=== PATIENT | female | born 1995 | race Caucasian/White ===

== ENCOUNTER 2025-01-07 10:41 | Observation (INO) ==
--- NOTE | 2025-01-07 11:12 | Emergency Department Note ---
Impression & Plan Pre-eclampsia, Edema ED Provider Note NAME: FRANSISCO ANDUJAR AGE: 29 SEX: F : 1995 ARRIVES VIA: Walk-In INFORMANT: Patient, ED PROVIDER(S): Real Pugh DO CHIEF COMPLAINT: Elevated blood pressure HPI: The patient is a 29-year-old female who is 7 days from a section. The patient had to be induced because of -induced hypertension and preeclampsia. The patient was started on Lasix. She is been compliant with her outpatient medication. She started noticing more swelling over the last 24 hours also noticed that she had a slight frontal headache as well as elevated blood pressure. She denies having any neck stiffness. She denies having any trauma or fever. The patient presented to the emergency department for further evaluation. She did deliver at [facility] because of her complicated . She is followed by the [facility] group locally. ROS: See above HPI for pertinent positives & negatives. A total of 10 systems reviewed and were otherwise negative. PAST MEDICAL HISTORY: See Below PAST SURGICAL HISTORY: See Below FAMILY HISTORY: See Below SOCIAL HISTORY: See Below HOME MEDICATIONS: See Below ALLERGIES: See Below VITALS: See Below PHYSICAL EXAMINATION: GENERAL: Patient is awake alert in no acute distress patient is resting comfortably and showing no signs of anxiety EYES: The conjunctivae are clear. The pupils are round and reactive. EARS, NOSE, MOUTH AND THROAT: The nose is without any evidence of any deformity. Mucous membranes are moist. Tongue is midline. NECK: The neck is nontender and supple. RESPIRATORY: Normal respiratory effort is noted there is no evidence of wheezing rhonchi or rales CARDIOVASCULAR: Regular rate and rhythm noted there no murmurs rubs or gallops normal S1 normal S2. GASTROINTESTINAL: The abdomen is soft. Abdomen is nontender. MUSCULOSKELETAL/EXTREMITIES: There is no evidence of gross deformity full range of motion is noted in the hips and shoulders. SKIN: Skin is warm and dry. Pedal edema was noted bilaterally. NEUROLOGIC: Patient is awake alert and oriented x3 strength is symmetric patellar reflexes are 2+ bilaterally MEDICAL DECISION MAKING: The patient is a 29-year-old female who is 1 week status post section because of preeclampsia for third trimester . The patient did have a headache. She had pedal edema bilaterally. She was on Lasix after her delivery until yesterday. I discussed the patient's laboratory and radiographic studies with her. She was observed in the emergency department. Pressure did improve but started to elevate again. I discussed her condition with the [facility] [employer] physician. At this time they are recommending admission for ongoing blood pressure control especially given the patient's history of preeclampsia. She is currently taking blood thinners as she has a history of antiphospholipid syndrome. The patient was agreeable to plan. Triage Nursing notes reviewed. Prior medical records reviewed Vital Signs: reviewed and remarkable for elevated blood pressure. Differential diagnosis: Benign hypertension, hypertensive emergency, cardiovascular pathology, toxicologic, pheochromocytoma, electrolyte abnormality, renal disease, endorgan damage, as well as other pathologies. ER treatment provided: See below Diagnostics interpreted by me: ECG: EKG was obtained in the emergency department. My interpretation is normal sinus rhythm at 67 bpm. There is no ectopy. There is no acute ST segment abnormalities noted. QTc was 420 ms. Cardiac Monitoring: An order was placed for continuous cardiac monitoring. The monitor shows a rate of 60 bpm with sinus rhythm. Laboratory studies: As stated above and show below. Imaging studies: See below. Radiographic imaging was reviewed by myself Consultation(s): I discussed this case with Dr. Arnold who is on-call for Luis Kate [employer]. Past Med/Surg History Problem List (Updated 01/07/25 @ 15:10 by Real Pugh DO) Edema (Acute) Pre-eclampsia (Acute) Decreased movement 26 weeks gestation of Chiari I malformation Antiphospholipid syndrome Rh negative status during Hypothyroidism affecting Encounter for supervision of normal intrauterine in multigravida, antepartum Early stage of Encounter for anatomic survey Medical History DVT (deep venous thrombosis) left leg Pulmonary embolism bilateral Varicella vaccination Anxiety Hypothyroidism, postablative Hx of papillary thyroid carcinoma Surgical History H/O ureter repair History of thyroidectomy History of embolectomy History of tonsillectomy History of thyroidectomy, total Family History Grandmother (Maternal) Lung cancer Factor V Leiden Father Hypertension Grandfather (Paternal) Hypertension Grandmother (Maternal) Breast cancer Great-grandmother Denies family history of Ovarian cancer Colorectal cancer Social History Smoking Status: Never smoker Do You Dip or Chew Tobacco: No; Hx Alcohol Use: Yes Hx Substance Use: No marital status: marital status details: Ernesto Andujar (33) [phone] Current Living Situation: Spouse Current Living Situation Comment: Lives with spouse and 1 dog current occupational status: employed current occupation: Occupational Therapist Feels Safe at Home: Yes Allergies Allergies Allergy/AdvReac Type Severity Reaction Status Date / Time gluten Allergy Intermediate Gastrointestinal Verified 10/14/24 20:14 Upset Sulfa (Sulfonamide Allergy Rash Verified 10/14/24 20:14 Antibiotics) Home Meds Home Medications Medication Instructions Recorded Confirmed magnesium gluconate 30 mg (550 mg) 30 mg PO DAILY 11/30/22 01/07/25 tablet enoxaparin 40 mg/0.4 mL 40 mg subcut DAILY 06/06/24 01/07/25 subcutaneous syringe (Lovenox) prenat.vits,janae,inb-ayeb-dwmnn 1 tab PO DAILY 06/06/24 01/07/25 famotidine 40 mg tablet (Pepcid) 40 mg PO DAILY 01/07/25 01/07/25 Previous Rx's Medication Instructions Recorded levothyroxine 150 mcg tablet 150 mcg PO DAILY #30 tabs 10/20/24 Results & Data (ED) Vital Signs Vital Signs - 24 hr 01/07/25 10:47 01/07/25 11:35 Temperature 36.4 C L Temperature Source Temporal Artery Scan Pulse Rate 70 Pulse Rate [Apical] 73 Pulse Rhythm Regular Pulse Strength Normal Respiratory Rate 20 16 Respiratory Effort / Characteristics Non-Labored Spontaneous Non-Labored Spontaneous Respiratory Depth Normal Normal Respiratory Pattern Regular Blood Pressure 149/96 H Blood Pressure [Left Arm] 138/89 Blood Pressure Mean 113 Blood Pressure Mean [Left Arm] 105 Blood Pressure Position Sitting Pulse Oximetry 98 98 Oxygen Delivery Method Room Air Room Air Sepsis Recent Fever Within 48 Hours No Sepsis New/Unexplained Change in Mental Status N/A Sepsis Action Taken by Nursing No Action Required Home Medications Current Medication List: was personally reviewed by me Laboratory Data Attestation: I reviewed the patient's lab results. 01/07/25 11:16 01/07/25 11:16 Lab Results 01/07/25 01/07/25 Range/Units 11:16 12:43 WBC 9.32 (4.8-10.8) K/ul RBC 3.84 L (4.20-5.40) M/uL Hgb 11.3 L (12.0-16.0) g/dl Hct 33.1 L (37.0-47.0) % MCV 86.2 (80.0-100.0) fL MCH 29.4 (25.0-34.0) pg MCHC 34.1 (32.0-36.0) g/dL RDW Std Deviation 41.3 (36.4-46.3) fL RDW Coeff of Margaret 13.2 (11.5-14.5) % Plt Count 346 (130-400) K/uL MPV 9.0 L (9.4-12.4) fL Immature Gran % (Auto) 0.8 % Neut % (Auto) 75.0 % Lymph % (Auto) 18.0 % [place] % (Auto) 4.9 % Eos % (Auto) 1.0 % Baso % (Auto) 0.3 % Neut # (Auto) 6.99 H (1.40-6.50) K/uL Lymph # (Auto) 1.68 (1.20-3.40) K/uL [place] # (Auto) 0.46 (0.11-0.59) K/uL Eos # (Auto) 0.09 (0.00-0.50) K/uL Baso # (Auto) 0.03 (0.00-0.20) K/uL Immature Gran # (Auto) 0.07 (0.01-0.20) K/uL PT 9.8 (9.0-12.0) Seconds INR 0.9 (0.9-1.1) APTT 27 (21-31) Seconds PTT Ratio 1.0 Sodium 131 L (136-145) mmol/L Potassium 4.2 (3.5-5.1) mmol/L Chloride 100 (98-107) mmol/L Carbon Dioxide 25 (21-32) mmol/L Anion Gap 6 (3-11) BUN 7 (6-23) mg/dl Creatinine 0.68 (0.6-1.2) mg/dl Est Cr Clr Drug Dosing 151.9 ml/min eGFR 120.83 BUN/Creatinine Ratio 10.3 (10-20) Glucose 94 (70-99(Fasting)) mg/dl Calcium 7.8 L (8.6-10.3) mg/dl Magnesium 2.0 (1.7-2.4) mg/dl Total Bilirubin 0.3 (0.2-1.0) mg/dl AST 30 (13-39) U/L ALT 45 (7-52) U/L Alkaline Phosphatase 81 (34-104) U/L Troponin I High Sens 10.3 (0-14) pg/ml Total Protein 6.3 (6.0-8.3) gm/dl Albumin 3.0 L (3.4-5.0) gm/dl Globulin 3.3 (2.5-4.0) gm/dl Albumin/Globulin Ratio 0.9 (0.9-2) Urine Color Yellow Urine Appearance Clear (Clear) Urine pH 7.0 (4.5-7.5) Ur Specific [place] 1.008 (1.000-1.030) Urine Protein Negative (Negative) Urine Glucose (UA) Negative (Negative) Urine Ketones Negative (Negative) Urine Blood 1+ H (Negative) Urine Nitrite Negative (Negative) Urine Bilirubin Negative (Negative) Urine Urobilinogen Negative (Negative) Ur Leukocyte Esterase 1+ H (Negative) Urine WBC (Auto) 11-20 H (0-5) /hpf Urine RBC (Auto) 0-2 (0-2) /hpf U Hyaline Cast (Auto) 0-2 (0-2) /lpf U Epithel Cells (Auto) 3-5 H (0-2) /hpf Urine Bacteria (Auto) None Seen (None Seen) Urine Comment Administered Medications Discontinued Medications Magnesium Sulfate/Dextrose (Magnesium Sulfate / D5w) 1 gm in 100 mls @ 100 mls/hr IV NOW STA Stop: 01/07/25 12:03 Last Infusion: 01/07/25 12:44 Dose: Infused Documented By: Admin: 01/07/25 11:28 Dose: 100 mls/hr Documented By: PRERNA Acetaminophen (Ofirmev) 1,000 mg in 100 mls @ 400 mls/hr IV NOW STA Stop: 01/07/25 11:18 Last Infusion: 01/07/25 11:38 Dose: Infused Documented By: Admin: 01/07/25 11:14 Dose: 400 mls/hr Documented By: PRERNA Labetalol HCl (Labetalol Hcl Iv 5 Mg/Ml 20ml) 10 mg IV NOW STA Stop: 01/07/25 11:05 Last Admin: 01/07/25 13:22 Dose: Not Given Documented By: ELOINA Imaging Data Attestation: I personally reviewed and interpreted this imaging study as follows: My Impression: 1 view chest x-ray was obtained in the emergency department. My interpretation is no free air or definite infiltrate, final report below. Radiologist's Impression: Chest X-Ray 01/07/25 10:59 XR chest 1V portable CLINICAL HISTORY: Hypertension COMPARISON STUDY: None FINDINGS: There is stable cardiomegaly without pulmonary vascular congestion. Inspiration is shallow. No consolidation or pleural effusion seen. No pneumothorax. IMPRESSION: No acute findings. ACT 112: Negative or not required by law. Electronically signed by: Koby Ying M.D. 01/07/2025 11:49 AM Discharge Plan Visit Data Chief Complaint: Hypertension Stated Complaint: POST HYPERTENSION ED Provider: Real Pugh Discharge Problem: Pre-eclampsia, Edema Patient Disposition: Admitted As Inpatient Condition: Fair Discharge Instructions Interventions: ED Discharge Assessment Last Done: 01/07/25 14:13
[2025-01-07] MEDS: ACETAMINOPHEN 1,000 MG/100 ML VIAL IV STA (11:14)
[2025-01-07] MEDS: MAGNESIUM SULFATE / D5W 1 GM/100 ML BAG IV STA (11:28)
[2025-01-07 11:47] LABS: Hematocrit (blood only) 33.1 % (37.0-47.0); Hemoglobin 11.3 g/dl (12.0-16.0); Immature Granulocytes # (auto) 0.07 K/uL (0.01-0.20); Immature Granulocytes % (auto) 0.8 %; Mean Corpuscular Hemoglobin 29.4 pg (25.0-34.0); Mean Corpuscular Volume 86.2 fL (80.0-100.0); Platelet Count 346 K/uL (130-400); RDW Standard Deviation 41.3 fL (36.4-46.3); Red Blood Count 3.84 M/uL (4.20-5.40); White Blood Count 9.32 K/ul (4.8-10.8)
--- NOTE | 2025-01-07 11:50 | XRay Report ---
XR chest 1V portable CLINICAL HISTORY: Hypertension COMPARISON STUDY: None FINDINGS: There is stable cardiomegaly without pulmonary vascular congestion. Inspiration is shallow. No consolidation or pleural effusion seen. No pneumothorax. IMPRESSION: No acute findings. ACT 112: Negative or not required by law. Electronically signed by: Koby Ying M.D. 01/07/2025 11:49 AM
[2025-01-07 12:01] LABS: Alanine Aminotransferase 45.0 U/L (7-52); Albumin Globulin Ratio 0.9 (0.9-2); Albumin Level 3.0 gm/dl (3.4-5.0); Alkaline Phosphatase 81.0 U/L (34-104); Anion Gap 6.0 (3-11); Bilirubin,Total 0.3 mg/dl (0.2-1.0); Blood Urea Nitrogen 7.0 mg/dl (6-23); Calcium 7.8 mg/dl (8.6-10.3); Carbon Dioxide 25.0 mmol/L (21-32); Chloride 100.0 mmol/L (98-107); Creatinine Clr Calc Pharmacy 151.9 ml/min; Globulin 3.3 gm/dl (2.5-4.0); Glucose 94.0 mg/dl (70-99(Fasting)); Magnesium 2.0 mg/dl (1.7-2.4); Potassium 4.2 mmol/L (3.5-5.1); Sodium 131.0 mmol/L (136-145); Total Protein 6.3 gm/dl (6.0-8.3)
[2025-01-07 12:10] LABS: INR 0.9 (0.9-1.1); Partial Thromboplastin Time 27 Seconds (21-31); Prothrombin Time 9.8 Seconds (9.0-12.0)
[2025-01-07 13:11] LABS: Appearance Urine Clear (Clear); Bacteria Urine Automated None Seen (None Seen); Cast Urine Automated 0-2 /lpf (0-2); Glucose Urine UA Negative (Negative); RBC Urine Automated 0-2 /hpf (0-2)
[2025-01-07] MEDS: LABETALOL HCL IV 5 MG/ML 20ML IV STA (13:22)
--- NOTE | 2025-01-07 15:08 | History & Physical Report ---
Date of Service January 07, 2025 Assessment & Plan (1) Pre-eclampsia: Plan: day 7 from CSec, severe preeclampsia at time of delivery. Returns to hospital with resurgence of preeclampsia, not on antihypertensives. Discussed starting labetalol PO and repeating 24hr mag to cover for the acute timeframe, given severe BP at home and here on arrival. Hope is to get her home after 24hr with stable controlled BP on labetalol. While here, continue thyroid meds, continue lovenox prophy + SCD's for history of antiphospholipid with PEs. CXR reassuring and no s/sx DVT on clinical exam, but she will be on pulse ox during mag therapy, and if SOB or desats would have low threshold to get spiral CT given her history. Admission and Anticipated Discharge Date Admission Date: January 07, 2025 History of Present Illness Chief Complaint: pPx Preeclampsia Primary Care Provider: Sadie Palm MD 29yo who is POD#7 from a primary section. Patient conceived using Nominum and received initial PNC with our group. S he works in [place], lives in [facility], and is nearest to [facility] for a tertiary center for the greatest number of hours in her daily life, so she elected to get MFM care at [facility] during this . In the third trimester she transferred to them. She is on lovenox for APS with h/o PEs, levothyroxine 150mcg PO QAM, and has a low-grade Chiari Malformation. Due to the Chiari, her neurologist recc'd CSec to avoid both pushing and/or an epidural. Although anesthesia at [facility] discussed with her this was probably overcautious, she did prefer to proceed that way and was comfortable with having a CSec and spinal. That was her delivery plan, to be done at [facility] at term. She was diagnosed with gHTN but it was mild and she'd been feeling fine. Then on 12/31 the patient began to have sudden worsening of edema and BP, and presented urgently to [facility] where she was diagnosed with severe preE, stabilized wtih IV labetalol and Mag 4g load, then transferred to [facility]. She then had primary LTCS, finished a 24hr mag course, and was discharged home on 01/03. She went home without any antihypertensive but was instructed to take lasix 20mg PO BID until 01/06, and to continue prophy dose lovenox. At home today, the patient had feelings of shortness of breath, fatigue/malaise, and noted bp elevated in the severe range when taken manually by her [employer] . She was brought to [facility] where BP was 149/96, with reported additional BP 156/101. Patient was given 1g IV magnesium in ER, and also had CXR due to SOB which was negative (no pulm edema/vascular congestion/PNA). She was transferred up to L&D for further care, where I met with her in 426. At this time she denies BOYER, RUQ pain, vision change. Edema is "mild compared to what it's been," and is ~1+ nonpitting at this time. Allergies Allergy/AdvReac Type Severity Reaction Status Date / Time gluten Allergy Intermediate Gastrointestinal Verified 10/14/24 20:14 Upset Sulfa (Sulfonamide Allergy Rash Verified 10/14/24 20:14 Antibiotics) Home Medications Medication Instructions Recorded Confirmed Type magnesium gluconate 30 mg (550 mg) 30 mg PO DAILY 11/30/22 01/07/25 History tablet enoxaparin 40 mg/0.4 mL 40 mg subcut DAILY 06/06/24 01/07/25 History subcutaneous syringe (Lovenox) prenat.vits,janae,dmy-cams-zphnj 1 tab PO DAILY 06/06/24 01/07/25 History levothyroxine 150 mcg tablet 150 mcg PO DAILY #30 tabs 10/20/24 01/07/25 Rx famotidine 40 mg tablet (Pepcid) 40 mg PO DAILY 01/07/25 01/07/25 History Past Med/Surg History Problem List (Updated 01/07/25 @ 15:10 by Real Pugh DO) Edema (Acute) Pre-eclampsia (Acute) Decreased movement 26 weeks gestation of Chiari I malformation Antiphospholipid syndrome Rh negative status during Hypothyroidism affecting Encounter for supervision of normal intrauterine in multigravida, antepartum Early stage of Encounter for anatomic survey Medical History DVT (deep venous thrombosis) left leg Pulmonary embolism bilateral Varicella vaccination Anxiety Hypothyroidism, postablative Hx of papillary thyroid carcinoma Surgical History H/O ureter repair History of thyroidectomy History of embolectomy History of tonsillectomy History of thyroidectomy, total Family History Grandmother (Maternal) Lung cancer Factor V Leiden Father Hypertension Grandfather (Paternal) Hypertension Grandmother (Maternal) Breast cancer Great-grandmother Denies family history of Ovarian cancer Colorectal cancer Social History Smoking Status: Never smoker Do You Dip or Chew Tobacco: No; Hx Alcohol Use: Yes Hx Substance Use: No marital status: marital status details: Ernesto Coles (33) [phone] Current Living Situation: Spouse Current Living Situation Comment: Lives with spouse and 1 dog current occupational status: employed current occupation: Occupational Therapist Feels Safe at Home: Yes Physical Exam Physical Exam: Gen: NAD, supine. Abd: Postgravid Ext: 1+ LE edema ankle and calf, 2+ DTR patella. Tico's negative. SCD's in place. Results & Data Results & Data Vital Signs (Past 12 Hours) Vital Signs Temp Pulse Pulse Resp BP BP Pulse Ox 01/07/25 11:35 73 16 138/89 98 01/07/25 10:47 97.5 F L 70 20 149/96 H 98 O2 Del Method 01/07/25 11:35 Room Air 01/07/25 10:47 Room Air Laboratory Results Laboratory Results - last 24 hr 01/07/25 01/07/25 11:16 12:43 WBC 9.32 RBC 3.84 L Hgb 11.3 L Hct 33.1 L MCV 86.2 MCH 29.4 MCHC 34.1 RDW Std Deviation 41.3 RDW Coeff of Margaret 13.2 Plt Count 346 MPV 9.0 L Immature Gran % (Auto) 0.8 Neut % (Auto) 75.0 Lymph % (Auto) 18.0 [place] % (Auto) 4.9 Eos % (Auto) 1.0 Baso % (Auto) 0.3 Neut # (Auto) 6.99 H Lymph # (Auto) 1.68 [place] # (Auto) 0.46 Eos # (Auto) 0.09 Baso # (Auto) 0.03 Immature Gran # (Auto) 0.07 PT 9.8 INR 0.9 APTT 27 PTT Ratio 1.0 Sodium 131 L Potassium 4.2 Chloride 100 Carbon Dioxide 25 Anion Gap 6 BUN 7 Creatinine 0.68 Est Cr Clr Drug Dosing 151.9 eGFR 120.83 BUN/Creatinine Ratio 10.3 Glucose 94 Calcium 7.8 L Magnesium 2.0 Total Bilirubin 0.3 AST 30 ALT 45 Alkaline Phosphatase 81 Troponin I High Sens 10.3 Total Protein 6.3 Albumin 3.0 L Globulin 3.3 Albumin/Globulin Ratio 0.9 Urine Color Yellow Urine Appearance Clear Urine pH 7.0 Ur Specific [place] 1.008 Urine Protein Negative Urine Glucose (UA) Negative Urine Ketones Negative Urine Blood 1+ H Urine Nitrite Negative Urine Bilirubin Negative Urine Urobilinogen Negative Ur Leukocyte Esterase 1+ H Urine WBC (Auto) 11-20 H Urine RBC (Auto) 0-2 U Hyaline Cast (Auto) 0-2 U Epithel Cells (Auto) 3-5 H Urine Bacteria (Auto) None Seen Urine Comment Code Status & VTE Plan VTE Prophylaxis Plan VTE Prophylaxis will be ordered: Yes PG Care Time/CCT Total # of Minutes Spent Total Time Spent with Patient: Total time spent is greater than 50% in coordination of care (as documented) at patient's floor/unit and/or counseling patient: Coding Level of Care Code 01159 INT INP/OBS CARE 3/75MIN Diagnoses Pre-eclampsia O14.90
[2025-01-07] MEDS ORDERED: ONDANSETRON INJ 2 MG/ML 2 ML VIAL IV PRN (15:14)
[2025-01-07] MEDS: MAGNESIUM SULFATE / WTR 40 GM/1,000 ML BAG IV SCH (15:30)
[2025-01-07] MEDS: ACETAMINOPHEN 325 MG TAB PO PRN (18:32)
[2025-01-07] MEDS: LABETALOL HCL 200 MG TAB PO SCH (21:33)
[2025-01-08] MEDS: LEVOTHYROXINE SODIUM 150 MCG TABLET PO SCH (06:26)
[2025-01-08 06:47] LABS: Hematocrit (blood only) 33.5 % (37.0-47.0); Hemoglobin 10.8 g/dl (12.0-16.0); Immature Granulocytes # (auto) 0.05 K/uL (0.01-0.20); Immature Granulocytes % (auto) 0.5 %; Mean Corpuscular Hemoglobin 28.3 pg (25.0-34.0); Mean Corpuscular Volume 87.7 fL (80.0-100.0); Platelet Count 361 K/uL (130-400); RDW Standard Deviation 43.5 fL (36.4-46.3); Red Blood Count 3.82 M/uL (4.20-5.40); White Blood Count 9.78 K/ul (4.8-10.8)
[2025-01-08 07:13] LABS: Alanine Aminotransferase 37.0 U/L (7-52); Albumin Globulin Ratio 0.9 (0.9-2); Albumin Level 2.9 gm/dl (3.4-5.0); Alkaline Phosphatase 78.0 U/L (34-104); Anion Gap 9.0 (3-11); Bilirubin,Total 0.2 mg/dl (0.2-1.0); Blood Urea Nitrogen 7.0 mg/dl (6-23); Calcium 7.0 mg/dl (8.6-10.3); Carbon Dioxide 23.0 mmol/L (21-32); Chloride 101.0 mmol/L (98-107); Creatinine Clr Calc Pharmacy 137.3 ml/min; Globulin 3.3 gm/dl (2.5-4.0); Glucose 87.0 mg/dl (70-99(Fasting)); Potassium 3.7 mmol/L (3.5-5.1); Sodium 133.0 mmol/L (136-145); Total Protein 6.2 gm/dl (6.0-8.3)
--- NOTE | 2025-01-08 07:41 | Obstetrical Progress Note ---
Date of Service January 08, 2025 Assessment & Plan (1) care and examination: Plan: 29yo post-op day 8 s/p section complicated by severe preeclampsia Feels a little better today. Vital signs stable, will continue to monitor Continue post- care Hold labetalol for now due to normal BPs Stopping magnesium sulfate due to pt's sx, will reassess need for antihypertensives after monitoring BPs (2) Pre-eclampsia: Admission and Anticipated Discharge Date Admission Date: January 07, 2025 Supervising Physician Co-Signing Physician Notes Resident Physician Supervision Note: I interviewed and examined the patient. Discussed with Dr. Escobar and agree with findings and plan as documented in the note. Any exceptions or clarifications are listed here: neuro exam reassuring bilaterally, DTR present, speech normal / face symmetric. Discussed with oncoming MD. Mag to stop, level now. CT Chest r/o PE given her high risk and sudden feeling of unwellness without obvious explanation. Close obs today. Documented By: Maggi Arnold MD, FACOG Subjective Pt is 29yo who is post-op day 8 after primary who is being managed for severe pre-eclampsia. She was seen and examined this m orning at bedside. Feels a little better since admission. Still complains of headache and left sided pressure behind eye that she attributes to receiving magnesium. She does have a hx of chronic headaches. Also mentioned right sided paraesthesias. Denies vision changes, RUQ pain, worsening edema, fever, chills, SOB, CP, abdominal pain, N/V/C/D, or complaints. Physical Exam Physical Exam: General: patient appears uncomfortable, answers questions appropriately Skin: warm, dry, intact Heart: S1/S2 heard, regular, no m/r/g Lungs: equal air entry bilaterally, no rales/rhonchi/wheezes Abd: Normoactive BS, soft, NT/ND, uterine fundus firm below umbilicus, incision site CDI Ext: warm, no clubbing/cyanosis, 1+ edema, Tico's neg Neuro: nonfocal, patient AAOx4, speech intact, no facial droop, moving all extremities on command, 2+ patellar reflexes performed by Dr. Arnold Results & Data Vital Signs (Past 12 Hours) Vital Signs Temp Pulse Resp BP Pulse Ox O2 Del Method 10/16/25 06:25 18 01/08/25 05:45 16 01/08/25 04:43 18 01/08/25 04:43 36.5 C 60 18 120/77 94 Room Air 01/08/25 02:33 14 01/08/25 01:30 14 01/08/25 00:30 20 01/07/25 23:48 16 01/07/25 23:48 36.9 C 68 16 105/72 93 Room Air 01/07/25 22:14 16 01/07/25 21:00 16 01/07/25 21:00 77 103/64 01/07/25 20:20 18 Resident Activity Tracking Resident Involvement: Resident Care Provided Care Provided: OB Delivery
[2025-01-08] MEDS ORDERED: LEVOTHYROXINE SODIUM 175 MCG TABLET PO SCH (09:00)
--- NOTE | 2025-01-08 09:27 | Obstetrical Progress Note ---
Date of Service January 08, 2025 Assessment & Plan (1) care and examination: Plan: 29yo post-op day 8 s/p section complicated by severe preeclampsia Feels a little better now. Vital signs stable, will continue to monitor. CVS, Resp, Neuro exam all reassuring. Continue post- care Hold labetalol for now due to normal BPs Stopping magnesium sulfate due to pt's sx, will reassess need for antihypertensives after monitoring BPs Chest CT ordered due to pt sx and hx of antiphospholipid syndrome and PE, will follow results (2) Pre-eclampsia: Plan: as above Admission and Anticipated Discharge Date Admission Date: January 07, 2025 Supervising Physician Co-Signing Physician Notes Resident Physician Supervision Note: I interviewed and examined the patient. Discussed with Dr. Escobar and agree with findings and plan as documented in the note. Any exceptions or clarifications are listed here: Patient complained this am of suddenly feeling unwell. She notes that she had some tingling and numbness in her lower extremities and some pressure behind her right eye. She had a through neuro exam by Dr. Arnold prior to her leaving this am. Nursing then noted that pulse ox was 94%. Was on her toe. Was moved to her hand and improved to 99%. she is not tachycardic or tachypneic. Her neruo exam is negative by Dr. Arnold and repeated by Dr. Escobar and also negative. Given hx of PE and APLAS, will get chest CT. Patient notes hx of TIA in the remote past. Given neg neuro exam, plan to hold on head CT for now and reassured. Blood pressure is good. also holding on labetolol. Documented By: Sadie Corrales MD, FACOG Subjective Pt seen and examined at bedside. She notes improvement of her sx since seen this morning. Still experiencing "mild dizziness and some eye pressure behind the left eye". She denies fever, chills, trouble breathing, CP, palpitations/flutters/skipped beats, abdominal pain, or complaints. Review of Systems Review of Systems: Per HPI Physical Exam Physical Exam: GA: well groomed, well nourished in no apparent distress. AAOx3 HEENT: head normocephalic, atraumatic. EOMI RESP: Not tachypneic, vesicular breath sounds b/l. No wheezes, rhonchi, or rales. O2 Sat 99% room air CARDIOVASCULAR: S1 and S2 heard. No murmurs, rubs, or gallops. Radial pulses 2+ b/l RRR (72bpm) MSK: no gross abnormalities or focal deficits SKIN: warm, dry, no edema PSYCH: appropriate mood and affect NEURO: CN 2-12 intact. speech fluent. No facial droop or nystagmus. Strength 5/5 B/L at UE and LE. Patellar reflexes 2+. Normal finger to nose testing. Results & Data Vital Signs (Past 12 Hours) Vital Signs Temp Pulse Resp BP Pulse Ox O2 Del Method 01/08/25 06:25 18 01/08/25 05:45 16 01/08/25 04:43 18 01/08/25 04:43 36.5 C 60 18 120/77 94 Room Air 01/08/25 02:33 14 01/08/25 01:30 14 01/08/25 00:30 20 01/07/25 23:48 16 01/07/25 23:48 36.9 C 68 16 105/72 93 Room Air 01/07/25 22:14 16 Resident Activity Tracking Resident Involvement: Resident Care Provided Care Provided: OB Delivery
[2025-01-08] MEDS: OPTIRAY 320 125ml IV ONE (09:42)
[2025-01-08] MEDS: ENOXAPARIN INJ 40 MG/0.4 ML SYR SQ SCH (09:56)
--- NOTE | 2025-01-08 10:43 | CT Scan Report ---
CT ANGIOGRAM OF THE CHEST CLINICAL HISTORY: Shortness of breath. Leg swelling. Recent . Evaluate for pulmonary embolus . COMPARISON STUDY: Chest radiograph January 07, 2025. TECHNIQUE: Following the IV administration of 118 cc of Optiray 320, CT angiogram of the chest was pe rformed from the upper abdomen to the thoracic inlet utilizing the pulmonary embolus protocol. Images are reviewed in the axial, sagittal, and coronal planes. 3-D MIPS images are created and assessed. I V contrast was administered without complication. A dose lowering technique was utilized adhering to the principles of ALARA. CT DOSE: 861.23 mGy.cm FINDINGS: There are several linear filling defects within bilateral lower lobe segmental pulmonary ar teries consistent with chronic pulmonary emboli. No acute pulmonary emboli are identified. There is n o thoracic aortic dissection. The heart is mildly enlarged. This may be physiologic. There is no gio cardial effusion. There is no pneumothorax or pleural effusion. There is no pulmonary infarct. Linear densities within the lungs represent atelectasis. Groundglass opacities with mild mosaic attenuation favors atelectasis or air-trapping. IMPRESSION: 1. Several linear filling defects within bilateral lower lobe segmental pulmonary arteries consistent with chronic pulmonary emboli. No acute pulmonary emboli identified. 2. No consolidation to suggest pneumonia. ACT 112: Negative or not required by law. Electronically signed by: Joshua Gimenez M.D. 01/08/2025 10:40 AM
--- NOTE | 2025-01-08 13:13 | Communication Note ---
Date of Service: January 08, 2025 CT scan with following interpretation-- MPRESSION: 1. Several linear filling defects within bilateral lower lobe segmental pulmonary arteries consistent with chronic pulmonary emboli. No acute pulmonary emboli identified. 2. No consolidation to suggest pneumonia. Discussed results with the patient. hr nl, pulse ox now 99%. Discussed likely not something to be worried about, will need to f/u with pcp and can do on outpatient basis. Nothing appears acute chest is ctab. Easily using ISB, However, patient would like a formal opinion about this and would like a hospitalist consult. Spoke with Dr. Thapa and explained the situation. She will come by and see the patient and review her course.
--- NOTE | 2025-01-08 14:41 | Hospitalist Consultation ---
<Statement entered by Janel Thapa MD - 01/08/25 19:53> I have reviewed vital signs, chart notes, labs and imaging. I have personally seen and evaluated the patient. I have also discussed the management of the patient with the MACK and I agree with the exam findings documented in the history and physical examination and the documented assessment and plan unless otherwise stated below. I am not sure what caused the episode this morning though it seems related to the magnesium infusion And slowly resolved once the infusion was stopped. Does not sound like TIA but that is not impossible. the CTA chest was obtained for this purpose, she has not had chest pain dyspnea tachycardia or hypoxia. CTA does show bilateral lower lobe chronic PEs. I am not clinically suspicious of acute PE. The pertinent question is what to do with her long-term anticoagulation. She is followed by a cloud engagement partner Dr. Alfaro at [facility] and she is going to establish with a warping mill operator soon. She says that she has had several episodes of VTE in the past including a bilateral PE which was some years ago and DVTs, she also easily develops SVT at peripheral IV sites. She has had several chest CTAs and most recently she recalls that they were read as normal and cannot remember it ever being called to chronic PE. This makes me concerned that the current chronic PE occurred in the interval between now and her last chest CTA which was November 2023. She says in the more distant past she had had hypercoagulable workup and they were never able to determine why she was having blood clots. She was on Xarelto for a time probably a year or 2 and then had been off it for some years without a recurrent clot. Because of the hypercoagulability associated with she has been treated with prophylaxis dose enoxaparin for the and period. While in [place] for her this was being dosed at 40 mg twice daily. It sounds that she had some prepregnancy testing and had a positive antiphospholipid antibody test, however, when it was repeated it was negative. There are frequent false positives or transient positives for this test so it is not necessarily true that she has APLA syndrome. we discussed the options of continuing prophylaxis dose enoxaparin with close follow-up with her cloud engagement partner versus initiation of full anticoagulation at this time either enoxaparin to warfarin bridge or resumption of DOAC. she favors staying on the prophylaxis dose enoxaparin and is thinking about it. She has contacted her cloud engagement partner's office to try to move up her appointment which is scheduled for sometime in January. I have asked the staff to bring a CD of her chest CTA images so that she can take it with her to follow-up appointments and it can be compared to recent outside CTAs Date of Consultation January 08, 2025 Assessment & Plan (1) Pulmonary embolism: (2) Pre-eclampsia: (3) Hypothyroidism, postablative: (4) Hx of papillary thyroid carcinoma: Plan Pt is a 29 y/o who is POD 8 following a primary . Pt had presented to the ED on 01/07 c/o leg swelling and SOB; she was admitted with concerns for pre-eclampsia. #Chronic PE's Chest CTA - Several linear filling defects within bilateral lower lobe segmental pulmonary arteries consistent with chronic pulmonary emboli. No acute pulmonary emboli identified CXR neg PT/INR stable 01/07 Discussed w/ Dr. Gimenez & he did talk to another radiologist who confirms chronic PE. Encouraged patient to obtain copy of disk of this CTA to compare @ [facility] upon discharge. Reports she is getting established w/ a warping mill operator which she was encouraged upon. Recommend close follow up w/ her cloud engagement partner on discharge. Remain on prophylactic Lovenox dosing at this time given absence of acute symptoms & discuss w/ pulm/heme for terminal superintendent treatment on outpatient basis. Pt agreeable to plan. #Abnormal urinalysis UA + for UTI UC w/ pin-point growth, pending final read abx per primary team #Pre-eclampsia Recs per primary team On Labetalol 200mg BID PO No longer on Mag #Hypothyroidism Follows w/ [facility]inology on outpatient basis hx of papillary thyroid carcinoma & total thyroidectomy TSH 12/05/2024 WNL Continue levothyroxine DVT prophylaxis: Lovenox Code: full Consultation discussed w/ Dr. Thapa at time of encounter. Thank you for this consultation, please reach out with questions or concerns. History of Present Illness Attending Physician: Maggi Arnold MD History of Present Illness Pt is a 29 y/o who is POD 8 following a primary . Pt had presented to the ED on 01/07 and was admitted with concerns for pre-eclampsia. Pt followed with MFM at [facility] where she was diagnosed with anti-phospholipid syndrome and subsequently placed on lovenox therapy. While here pt underwent a CTA on 01/08 that revealed the presence of chronic pulmonary emboli. Pt expressed concern d/t previous CTA in 11/2023 at [facility] that did not note these changes, per pt. She denied experiencing any SOB, chest pain, or palpitations. Discussed having radiologist review the imaging again to confirm initial findings on CTA today. Pt will follow-up with pulmonology and hematology upon discharge. Pt would also like a CD copy of her CTA upon discharge. Pt is currently on once daily SQ lovenox for anticoagulation therapy and will continue with outpatient hematology management. Allergies Allergy/AdvReac Type Severity Reaction Status Date / Time gluten Allergy Intermediate Gastrointestinal Verified 10/14/24 20:14 Upset Sulfa (Sulfonamide Allergy Rash Verified 10/14/24 20:14 Antibiotics) Home Medications Medication Instructions Recorded Confirmed Type magnesium gluconate 30 mg (550 mg) 30 mg PO DAILY 11/30/22 01/07/25 History tablet enoxaparin 40 mg/0.4 mL 40 mg subcut DAILY 06/06/24 01/07/25 History subcutaneous syringe (Lovenox) prenat.vits,janae,eub-isyr-hkoin 1 tab PO DAILY 06/06/24 01/07/25 History levothyroxine 150 mcg tablet 150 mcg PO DAILY #30 tabs 10/20/24 01/07/25 Rx famotidine 40 mg tablet (Pepcid) 40 mg PO DAILY 01/07/25 01/07/25 History Patient History Medical History DVT (deep venous thrombosis) left leg Pulmonary embolism bilateral Varicella vaccination Anxiety Hypothyroidism, postablative Hx of papillary thyroid carcinoma Surgical History H/O ureter repair History of thyroidectomy History of embolectomy History of tonsillectomy History of thyroidectomy, total Family History Grandmother (Maternal) Lung cancer Factor V Leiden Father Hypertension Grandfather (Paternal) Hypertension Grandmother (Maternal) Breast cancer Great-grandmother Denies family history of Ovarian cancer Colorectal cancer Social History (Reviewed 01/07/25 @ 11:11 by SILVANA Meyer Smoking Status: Never smoker Do You Dip or Chew Tobacco: No; Hx Alcohol Use: No Hx Substance Use: No Preferred Language: Kazakh Communication Ability: Effective Service Car Operator Required: No Beliefs That Will Affect Care: None marital status: marital status details: Ernesto Coles ([id number]) [phone] Current Living Situation: Spouse and Family Current Living Situation Comment: Lives with spouse and 1 dog current occupational status: employed current occupation: Occupational Therapist Feels Safe at Home: Yes Assistive Devices: None Physical Exam Physical Exam: General: NAD, VS as above Resp: normal respiratory effort, lungs clear to auscultation CV: RRR, no murmur Extremities: Moves all extremities, no edema Neuro: A&O x3 Results & Data Results & Data Vital Signs (Past 12 Hours) Vital Signs Temp Pulse Resp BP Pulse Ox O2 Del Method 01/08/25 12:40 76 20 125/86 Room Air 01/08/25 09:23 66 20 124/83 99 Room Air 01/08/25 07:50 18 01/08/25 07:50 36.6 C 66 18 128/86 94 Room Air 01/08/25 06:25 18 01/08/25 05:45 16 01/08/25 04:43 18 01/08/25 04:43 36.5 C 60 18 120/77 94 Room Air 01/08/25 02:33 14 PG Care Time/CCT Total # of Minutes Spent Total Time Spent with Patient: Total time spent is greater than 50% in coordination of care (as documented) at patient's floor/unit and/or counseling patient: Coding Level of Care Code 49655 IN/OBS CONSULT LVL 3,45M Diagnoses Pulmonary embolism I26.99 Pre-eclampsia O14.90 Hypothyroidism, postablative E89.0 Hx of papillary thyroid carcinoma Z85.850
[2025-01-08 23:40] VITALS: O2SAT 97
[2025-01-09 03:39] VITALS: RESP 16
--- NOTE | 2025-01-09 06:01 | Obstetrical Progress Note ---
Date of Service January 09, 2025 Assessment & Plan (1) care and examination: Plan: 29yo post-op day 9 s/p section complicated by severe preeclampsia s/p mag Feels better today. Vital signs stable. labetalol held for now due to normal BPs, will d/c home on 100mg BID Follow-up with [facility] early next week, preferably 01/12 or 01/13 (2) Pre-eclampsia: Plan: as above (3) Pulmonary embolism: Plan: Follow-up with Hematology and Pulmonology for lovenox/anticoagulation management and chronic PEs, respectively Admission and Anticipated Discharge Date Admission Date: January 07, 2025 Supervising Physician Co-Signing Physician Notes Resident Physician Supervision Note: I interviewed and examined the patient. Discussed with Dr. Escobar and agree with findings and plan as documented in the note. Any exceptions or clarifications are listed here: Patient doing overall well. Feeling so much better off mag. no s/s of pet. Blood pressures have been good and antihypertensives have been help. Plan d/c today. pet sx discussed. visit in the office m/t next week. A script for labetolol sent to take if blood pressure at home >150/90. 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 Precautions given. Documented By: Sadie Corrales MD, FACOG Subjective Pt seen and examined this morning at bedside. Feels better today. Ambulating and voiding well. Tolerating diet and passing gas. Denies headache, vision changes, eye pressure, RUQ pain, fever, chills, SOB, CP, complaints, and leg edema. Review of Systems Review of Systems: per HPI Physical Exam Physical Exam: GA: well groomed, well nourished in no apparent distress. AAOx3 HEENT: head normocephalic, atraumatic. EOMI RESP: Not tachypneic, vesicular breath sounds b/l. No wheezes, rhonchi, or rales. CARDIOVASCULAR: S1 and S2 heard. No murmurs, rubs, or gallops. MSK: no gross abnormalities or focal deficits SKIN: warm, dry, no edema PSYCH: appropriate mood and affect NEURO: speech fluent. No facial droop or nystagmus. no focal deficits noted. Results & Data Vital Signs (Past 12 Hours) Vital Signs Temp Pulse Pulse Resp BP Pulse Ox O2 Del Method 01/09/25 03:38 36.3 C L 65 16 134/83 97 Room Air 01/08/25 23:38 36.9 C 61 18 120/86 97 Room Air 01/08/25 20:34 37.0 C 67 18 129/89 95 Room Air Resident Activity Tracking Resident Involvement: Resident Care Provided Care Provided: OB Delivery
[2025-01-09 07:49] VITALS: TEMP 99
[2025-01-09 08:59] VITALS: BP 130/90; PULSE 67
--- NOTE | 2025-01-12 05:56 | Electrocardiogram Report ---
Test Reason : Blood Pressure : */* mmHG Vent. Rate : 67 BPM Atrial Rate : 67 BPM P-R Int : 186 ms QRS Dur : 66 ms QT Int : 398 ms P-R-T Axes : 42 -2 38 degrees QTcB Int : 420 ms Normal sinus rhythm Possible Left atrial enlargement Anterior infarct , age undetermined Abnormal ECG No previous ECGs available Confirmed by Delonte Steward ([id number]) on 01/12/2025 5:55:36 AM Referred By: REFERRED SELF Confirmed By: Delonte Steward
== END 2025-01-09 09:15 | disposition home or self-care (01) ==
LOC: ED 10:41 → 4S1 10:41 → 4E2 17:52